=== PATIENT | female | born 1975 | race Caucasian/White ===

== ENCOUNTER 2017-04-08 22:53 | Emergency (ER) | payer SELFPAY ==
--- NOTE | 2017-04-08 23:42 | EDM.PDOC ---
ED HPI GENERAL MEDICAL PROBLEM - General Chief Complaint: Gastrointestinal Problem Stated Complaint: "THROWING UP AND MY HEART RACING" Time Seen by Provider: 04/08/17 23:30 Source of Information: Reports: Patient History Limitations: Reports: No Limitations - History of Present Illness INITIAL COMMENTS - FREE TEXT/NARRATIVE: States that last evening she vomited 5-6 times and "it was all blood" [place] warm and wea all over. Then slept as she was working evenings and has vomited again this evening from 7-10 about 4 times but no blood in it. Has noted that heart rate is up at work tonight and she feels weak. Has not ate anything today but has been drinking water and sprite. No diarrhea with it. Does have history of stomach ulcers which she takes meds for. Does feel weak but was able to complete shift. Onset: Gradual Location: Reports: Abdomen Associated Symptoms: Reports: Nausea/Vomiting, Weakness Abdomen Pain Score (Numeric/FACES): 6 - Related Data Allergies Allergy/AdvReac Type Severity Reaction Status Date / Time Penicillins Allergy Vomiting Verified 04/08/17 23:25 Tetanus Vaccines and Toxoid Allergy Cannot Verified 04/08/17 23:26 Remember Home Meds: Home Meds Metoclopramide [Reglan] 10 mg PO QIDACANDBED 04/08/17 [History] Pantoprazole Sodium [Protonix] 40 mg PO DAILY 04/08/17 [History] Ranitidine HCl [Zantac] 300 mg PO DAILY 04/08/17 [History] Sucralfate [Carafate] 1 gm PO 5XDAY 04/08/17 [History] Past Medical History Gastrointestinal History: Reports: GI Bleed - Past Surgical History GI Surgical History: Reports: Other (See Below) (stomach surgery 2013) Female Surgical History: Reports: Hysterectomy Social & Family History - Tobacco Core Measures Tobacco Use/Smoking Within Last 30 Days: No - Alcohol Use Alcohol Use in Last Twelve Months: No ED ROS GENERAL - Review of Systems Review Of Systems: See Below Constitutional: Reports: No Symptoms, Weakness. Denies: Fever, Chills Respiratory: Reports: No Symptoms Cardiovascular: Reports: Other (tachycardia.) GI/Abdominal: Reports: Abdominal Pain, Decreased Appetite, Vomiting. Denies: Constipation, Diarrhea : Reports: No Symptoms Musculoskeletal: Reports: No Symptoms Neurological: Reports: Headache ED EXAM, GI/ABD - Physical Exam Exam: See Below Exam Limited By: No Limitations General Appearance: Alert, WD/WN, Mild Distress Ears: Normal External Exam, Normal Canal, Normal TMs Nose: Normal Inspection Throat/Mouth: Normal Inspection, Normal Oropharynx, Normal Voice, No Airway Compromise Head: Atraumatic, Normocephalic Neck: Normal Inspection, Supple, Non-Tender, Full Range of Motion Respiratory/Chest: No Respiratory Distress, Lungs Clear, Normal Breath Sounds Cardiovascular: Normal Peripheral Pulses, No Edema, No Murmur, Tachycardia GI/Abdominal Exam: Normal Bowel Sounds, Soft, Non-Tender Back Exam: Normal Inspection, Full Range of Motion Extremities: Normal Inspection, Normal Range of Motion, Non-Tender Neurological: Alert, Oriented Skin Exam: Warm, Dry, Intact Course - Vital Signs Last Recorded V/S: Last Vital Signs Temp 98.8 F 04/08/17 23:16 Pulse 106 H 04/08/17 23:16 Resp 20 04/08/17 23:16 BP 123/87 04/08/17 23:16 Pulse Ox 100 04/08/17 23:16 - Orders/Labs/Meds Labs: Laboratory Tests 04/08/17 04/08/17 04/08/17 Range/Units 11:20 11:20 23:32 WBC 13.2 H (5.0-10.0) 10^3/uL RBC 4.00 (4.00-5.50) 10^6/uL Hgb 10.7 L (12.0-16.0) g/dL Hct 32.5 L (37.0-47.0) % MCV 81.3 L (82.0-94.0) fL MCH 26.8 L (27.0-32.0) pg MCHC 32.9 L (33.0-38.0) g/dL RDW Coeff of Natasha 17.4 H (11.0-15.0) % Plt Count 398 (150-400) 10^3/uL Neut % (Auto) 84.3 (35-85) % Lymph % (Auto) 11.2 (10-55) % [place] % (Auto) 4.2 (0-16) % Eos % (Auto) 0.1 (0-5) % Baso % (Auto) 0.2 (0-3) % Neut # (Auto) 11.14 H (1.80-7.00) 10^3/uL Lymph # (Auto) 1.48 (1.00-4.80) 10^3/uL [place] # (Auto) 0.55 (0.00-0.80) 10^3/uL Eos # (Auto) 0.01 (0.00-0.45) 10^3/uL Baso # (Auto) 0.02 10^3/uL Sodium 135 L (136-145) mEq/L Potassium 3.8 (3.5-5.0) mEq/L Chloride 99 (98-106) mEq/L Carbon Dioxide 27 (21-32) mmol/L BUN 37 H (7-18) mg/dL Creatinine 1.2 H (0.6-1.0) mg/dL Est Cr Clr Drug Dosing 53.81 mL/min Estimated GFR (MDRD) 50 L (>=60) mL/min Glucose 119 H (75-99) mg/dL Calcium 9.0 (8.4-10.1) mg/dL Total Bilirubin 0.3 (0.0-1.0) mg/dL AST 14 L (15-37) U/L ALT 26 (12-78) U/L Alkaline Phosphatase 55 (46-116) U/L Total Protein 7.3 (6.4-8.2) g/dL Albumin 3.7 (3.4-5.0) g/dL Urine Color Yellow (YELLOW) Urine Appearance Clear (CLEAR) Urine pH 6.0 (4.5-8.0) Ur Specific [place] 1.015 (1.003-1.020) Urine Protein Negative (NEGATIVE) mg/dL Urine Glucose (UA) Negative (NEGATIVE) mg/dL Urine Ketones 15 H (NEGATIVE) mg/dL Urine Occult Blood Negative (NEGATIVE) Urine Nitrite Negative (NEGATIVE) Urine Bilirubin Negative (NEGATIVE) Urine Urobilinogen 0.2 (0.2-1.0) EU/dL Ur Leukocyte Esterase Negative (NEGATIVE) Urine RBC Not seen (0-5) /HPF Urine WBC Not seen (0-5) /HPF Ur Squamous Epith Cells Moderate H (NOT SEEN) /HPF Urine Mucus Few H (NOT SEEN) /HPF Meds: Medications Discontinued Medications Generic Name Dose Route Start Last Admin Trade Name Freq PRN Reason Stop Dose Admin Lactated Ringer's 1,000 mls @ 999 mls/hr 04/08/17 23:51 04/09/17 00:01 Ringers, Lactated IV 04/09/17 00:51 999 mls/hr .BOLUS ONE Administration Ondansetron HCl 4 mg 04/08/17 23:51 04/09/17 00:20 Zofran IVPUSH 4 mg Q6H PRN Administration Nausea Pantoprazole Sodium 40 mg 04/08/17 23:55 04/09/17 00:15 Protonix Iv IVPUSH 04/08/17 23:56 40 mg ONETIME ONE Administration - Re-Assessments/Exams Free Text/Narrative Re-Assessment/Exam: 04/08/17 23:53 reviewed lab results with the pt. Will give 2 liters of IV fluids, Protonix and zofran. recheck when fluids are infused and follow up and plan for discharge at that time. 04/09/17 0325 Discussed with nursing that pt feels better except still has some headache but that has improved. Will discharge to home. No work this morning, push fluids. Departure - Departure Time of Disposition: 03:30 Disposition: Home, Self-Care 01 Clinical Impression: Vomiting - Discharge Information Instructions: Nausea and Vomiting, Adult, [id number] Referrals: PCP,Unobtain [Ordering Only Provider] - Forms: ED Department Discharge Additional Instructions: No work this morning tylenol for headaches as needed Recheck if nausea reoccurs or if any bleeding noted Push fluids as much as possible - Problem List & Annotations (1) Vomiting SNOMED Code(s): 249548737 Code(s): R11.10 - VOMITING, UNSPECIFIED Status: Acute Priority: High - Problem List Review Problem List Initiated/Reviewed/Updated: Yes
[2017-04-08] MEDS ORDERED: Lactated Ringers 1,000 ML IV ONE (23:51)
[2017-04-08] MEDS ORDERED: Ondansetron 4 MG/2 ML SDV IVPUSH PRN (23:51)
[2017-04-08] MEDS ORDERED: Pantoprazole 40 MG Vial IVPUSH ONE (23:55)
== END 2017-04-09 02:48 | disposition home or self-care (01) ==
LOC: EDBD → CC.ED 22:53
DX: R11.2 Nausea with vomiting, unspecified (principal); Z79.899 Other long term (current) drug therapy; Z88.0 Allergy status to penicillin; Z88.7 Allergy status to serum and vaccine
CPT/HCPCS: 36415; 80053; 81001; 85025; 96361; 96374; 96375; 99284; C9113; J2405; J7120

== ENCOUNTER 2017-04-14 02:30 | Emergency (ER) | payer SELFPAY ==
[2017-04-14] MEDS ORDERED: Aspirin 81 MG Tab.Chew PO ONE (03:11)
[2017-04-14 03:25] LABS: CHLORIDE,CL 105 mEq/L (98-106); SODIUM,NA 138 mEq/L (136-145)
[2017-04-14] MEDS ORDERED: Sodium Chloride 0.9% 1,000 ML ONE (03:48)
[2017-04-14] MEDS ORDERED: Sodium Chloride 0.9% 1,000 ML IV ONE (04:00)
[2017-04-14] MEDS ORDERED: Pantoprazole 40 MG Vial IVPUSH SCH (04:15)
--- NOTE | 2017-04-14 05:14 | EDM.PDOC ---
ED HPI GENERAL MEDICAL PROBLEM - General Chief Complaint: Syncope Stated Complaint: SOB Time Seen by Provider: 04/14/17 03:25 Source of Information: Reports: Patient History Limitations: Reports: No Limitations - History of Present Illness INITIAL COMMENTS - FREE TEXT/NARRATIVE: Lyndsay is a 41 yo female who presents to the ER with concerns of her heart racing. She states when she got up yesterday morning she became very lightheaded and felt as if she was going to faint. She states it continued all day and she stayed home resting on the couch. Admits every time she would get up her heart would start racing faster and felt as if she was getting weaker. States she would get some chest discomfort upon ambulation and shortness of breath. She was seen on in the ER for bloody emesis. She states she was given a couple liters of fluids and Zofran for the nausea. States she did well through out the weekend with no further emesis. 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 States she felt fine all day and had no difficulties. She admits to a history of stomach ulcers and was started on Carafate, Protonix and Zantac about 3 months ago from her primary physician in [place]. She states she hasn't been taking the medicines every day and still has the original prescriptions. She did not take her medicines today. She denies any abdominal discomfort presently. States she had one bowel movement today, which was black and hard. Admits to having dark bloody stools on occasion though. States in 2013, she underwent an EGD and was found to have an obstruction and underwent surgery at the distal end of her stomach. She isn't sure exactly what was done but she was told then that she had Ulcers. She states she needed a blood transfusion then and was told she was anemic but isn't sure from what. She denies any history of frequent NSAID use. States she had taken Aleve on only one occasion last week for a headache but none since. She denies any alcohol use. States she rarely drinks any caffeine either. Per review of her chart from her ER visit on the 09 of March her Hgb was 10.7 with a Hct of 32.5. Onset Date: 04/13/17 Duration: Constant Location: Reports: Chest Improves with: Reports: Rest Worsens with: Reports: Movement Associated Symptoms: Reports: Chest Pain (states she had some chest discomfort on arrival, but nothing since. ), Headaches, Loss of Appetite, Shortness of Breath, Weakness. Denies: Fever/Chills, Nausea/Vomiting, Syncope - Related Data Allergies Allergy/AdvReac Type Severity Reaction Status Date / Time Penicillins Allergy Vomiting Verified 04/14/17 02:48 Tetanus Vaccines and Toxoid Allergy Cannot Verified 04/14/17 02:48 Remember Home Meds: Home Meds Metoclopramide [Reglan] 10 mg PO QIDACANDBED 04/08/17 [History] Pantoprazole Sodium [Protonix] 40 mg PO DAILY 04/08/17 [History] Ranitidine HCl [Zantac] 300 mg PO DAILY 04/08/17 [History] Sucralfate [Carafate] 1 gm PO 5XDAY 04/08/17 [History] Past Medical History HEENT History: Reports: None Cardiovascular History: Reports: High Cholesterol (hypertriglyceridemia) Respiratory History: Reports: None Gastrointestinal History: Reports: Bowel Obstruction, GI Bleed, PUD Genitourinary History: Reports: Other (See Below) Other Genitourinary History: high grade cervical dysplasia Neurological History: Reports: None Psychiatric History: Reports: Anxiety (stress) Endocrine/Metabolic History: Reports: None Hematologic History: Reports: Anemia, Blood Transfusion(s) (2013) - Past Surgical History GI Surgical History: Reports: Other (See Below) (stomach surgery 2013) Female Surgical History: Reports: Hysterectomy (partial for high grade dysplasia (Grade 4) @ 28yrs old) Social & Family History - Family History Cardiac: Reports: Hypertension OBGYN: Reports: Other (See Below) (mother had uterine cancer) Hematologic: Reports: Anemia Oncologic: Reports: Uterine (mother) - Tobacco Use Smoking Status *Q: Never Smoker Second Hand Smoke Exposure: No - Alcohol Use Alcohol Use History: No Alcohol Use in Last Twelve Months: No - Recreational Drug Use Recreational Drug Use: No ED ROS GENERAL - Review of Systems Review Of Systems: See Below Constitutional: Reports: Weakness, Fatigue. Denies: Fever, Chills, Diaphoresis HEENT: Reports: No Symptoms Respiratory: Reports: No Symptoms. Denies: Cough, Hemoptysis Cardiovascular: Reports: Chest Pain (infrequently), Dyspnea on Exertion, Lightheadedness, Palpitations. Denies: Edema, Syncope GI/Abdominal: Reports: Black Stool, Bloody Stool, Constipation, Hematemesis ( subsided 04/08/2017). Denies: Abdominal Pain, Diarrhea, Vomiting : Reports: No Symptoms. Denies: Irregular Menses (hysterectomy) Neurological: Reports: Dizziness, Headache Psychiatric: Reports: Anxiety Hematologic/Lymphatic: Reports: Anemia ED EXAM, GENERAL - Physical Exam Exam: See Below Exam Limited By: No Limitations General Appearance: Alert, No Apparent Distress Ears: Normal External Exam, Hearing Grossly Normal Nose: Normal Inspection, No Blood Throat/Mouth: Normal Inspection, Normal Voice, No Airway Compromise Head: Atraumatic, Normocephalic Neck: Normal Inspection, Supple Respiratory/Chest: No Respiratory Distress, Lungs Clear, Normal Breath Sounds, No Accessory Muscle Use Cardiovascular: Normal Peripheral Pulses, No Edema, No Murmur, Tachycardia Peripheral Pulses: 2+: Posterior Tibial (L), Posterior Tibial (R), Dorsalis Pedis (L), Dorsalis Pedis (R) GI/Abdominal: Normal Bowel Sounds, Soft, Non-Tender, No Organomegaly, No Distention, No Mass Rectal (Female) Exam: Normal Rectal Tone, Heme + Stool. No: Bloody Stool (no gross blood in rectal vault), Decreased Rectal Tone, Hemorrhoids Extremities: Normal Inspection Neurological: Alert, Oriented, Normal Cognition, No Motor/Sensory Deficits Psychiatric: Normal Affect, Normal Mood Skin Exam: Warm, Dry, Pallor EKG INTERPRETATION EKG Date: 04/14/17 Time: 15:06 Rhythm: Other (Sinus Tachycardia) Comparison: NA - No Prior EKG Course - Vital Signs Last Recorded V/S: Last Vital Signs Temp 99.8 F 04/14/17 04:49 Pulse 104 H 04/14/17 04:49 Resp 18 04/14/17 04:49 BP 122/81 04/14/17 04:49 Pulse Ox - Orders/Labs/Meds Orders: Active Orders 24 hr Category Date Time Status EKG Documentation Completion [RC] STAT Care 04/14/17 02:59 Active Chest 1V Frontal [CR] Stat Exams 04/14/17 02:54 Taken RED BLOOD CELLS LP [BBK] Stat Lab 04/14/17 03:00 Results TYPE AND SCREEN [BBK] Stat Lab 04/14/17 03:00 Results Pantoprazole [ProTONIX IV] Med 04/14/17 04:15 Active 40 mg IVPUSH Q24H Sodium Chloride 0.9% [Normal Saline] 1,000 ml Med 04/14/17 04:00 Active IV .BOLUS Medication Orders Sodium Chloride (Normal Saline) 1,000 mls @ 999 mls/hr IV .BOLUS ONE Stop: 04/14/17 05:00 Pantoprazole Sodium (Protonix Iv) 40 mg IVPUSH Q24H YOLA Labs: Laboratory Tests 04/14/17 04/14/17 04/14/17 Range/Units 03:00 03:00 03:00 WBC 14.3 H (5.0-10.0) 10^3/uL RBC 2.27 L (4.00-5.50) 10^6/uL Hgb 6.2 L* (12.0-16.0) g/dL Hct 19.3 L* (37.0-47.0) % MCV 85.0 (82.0-94.0) fL MCH 27.3 (27.0-32.0) pg MCHC 32.1 L (33.0-38.0) g/dL RDW Coeff of Natasha 18.5 H (11.0-15.0) % Plt Count 409 H (150-400) 10^3/uL Neut % (Auto) 73.8 (35-85) % Lymph % (Auto) 18.2 (10-55) % [place] % (Auto) 6.7 (0-16) % Eos % (Auto) 1.1 (0-5) % Baso % (Auto) 0.2 (0-3) % Neut # (Auto) 10.53 H (1.80-7.00) 10^3/uL Lymph # (Auto) 2.60 (1.00-4.80) 10^3/uL [place] # (Auto) 0.95 H (0.00-0.80) 10^3/uL Eos # (Auto) 0.15 (0.00-0.45) 10^3/uL Baso # (Auto) 0.03 10^3/uL PT 10.5 (9.7-12.3) SEC INR 0.97 (0.92-1.18) APTT 20.8 (20.0-45.0) SEC Sodium 138 (136-145) mEq/L Potassium 3.7 (3.5-5.0) mEq/L Chloride 105 (98-106) mEq/L Carbon Dioxide 23 (21-32) mmol/L BUN 24 H (7-18) mg/dL Creatinine 1.1 H (0.6-1.0) mg/dL Est Cr Clr Drug Dosing TNP Estimated GFR (MDRD) 55 L (>=60) mL/min Glucose 155 H D (75-99) mg/dL Calcium 8.5 (8.4-10.1) mg/dL Lactate Dehydrogenase 143 (100-190) U/L Creatine Kinase 36 (21-215) U/L Troponin I < 0.017 (0.00-0.06) ng/mL Blood Type Gel Antibody Screen Crossmatch 04/14/17 Range/Units 03:00 WBC (5.0-10.0) 10^3/uL RBC (4.00-5.50) 10^6/uL Hgb (12.0-16.0) g/dL Hct (37.0-47.0) % MCV (82.0-94.0) fL MCH (27.0-32.0) pg MCHC (33.0-38.0) g/dL RDW Coeff of Natasha (11.0-15.0) % Plt Count (150-400) 10^3/uL Neut % (Auto) (35-85) % Lymph % (Auto) (10-55) % [place] % (Auto) (0-16) % Eos % (Auto) (0-5) % Baso % (Auto) (0-3) % Neut # (Auto) (1.80-7.00) 10^3/uL Lymph # (Auto) (1.00-4.80) 10^3/uL [place] # (Auto) (0.00-0.80) 10^3/uL Eos # (Auto) (0.00-0.45) 10^3/uL Baso # (Auto) 10^3/uL PT (9.7-12.3) SEC INR (0.92-1.18) APTT (20.0-45.0) SEC Sodium (136-145) mEq/L Potassium (3.5-5.0) mEq/L Chloride (98-106) mEq/L Carbon Dioxide (21-32) mmol/L BUN (7-18) mg/dL Creatinine (0.6-1.0) mg/dL Est Cr Clr Drug Dosing Estimated GFR (MDRD) (>=60) mL/min Glucose (75-99) mg/dL Calcium (8.4-10.1) mg/dL Lactate Dehydrogenase (100-190) U/L Creatine Kinase (21-215) U/L Troponin I (0.00-0.06) ng/mL Blood Type O POSITIVE Gel Antibody Screen Negative Crossmatch See Detail Meds: Medications Generic Name Dose Route Start Last Admin Trade Name Freq PRN Reason Stop Dose Admin Sodium Chloride 1,000 mls @ 999 mls/hr 04/14/17 04:00 Normal Saline IV 04/14/17 05:00 .BOLUS ONE Pantoprazole Sodium 40 mg 04/14/17 04:15 Protonix Iv IVPUSH Q24H YOLA Discontinued Medications Generic Name Dose Route Start Last Admin Trade Name Freq PRN Reason Stop Dose Admin Sodium Chloride Confirm 04/14/17 03:48 Normal Saline Administered 04/14/17 03:49 Dose 1,000 mls @ as directed .ROUTE .STK-MED ONE Departure - Departure Time of Disposition: 05:40 Disposition: DC/[facility]fer to [facility] 02 Reason for Transfer *Q: Other Clinical Impression: GI bleed Qualifiers: GI bleed type/associated pathology: unspecified gastrointestinal hemorrhage type Qualified Code(s): K92.2 - Gastrointestinal hemorrhage, unspecified - Problem List & Annotations (1) GI bleed SNOMED Code(s): 34565861 Code(s): K92.2 - GASTROINTESTINAL HEMORRHAGE, UNSPECIFIED Status: Acute Qualifiers: GI bleed type/associated pathology: unspecified gastrointestinal hemorrhage type Qualified Code(s): K92.2 - Gastrointestinal hemorrhage, unspecified - Problem List Review Problem List Initiated/Reviewed/Updated: Yes - My Orders Last 24 Hours: My Active Orders 04/14/17 02:54 Chest 1V Frontal [CR] Stat 04/14/17 02:59 EKG Documentation Completion [RC] STAT 04/14/17 03:00 RED BLOOD CELLS LP [BBK] Stat TYPE AND SCREEN [BBK] Stat 04/14/17 04:00 Sodium Chloride 0.9% [Normal Saline] 1,000 ml IV .BOLUS 04/14/17 04:15 Pantoprazole [ProTONIX IV] 40 mg IVPUSH Q24H - Assessment/Plan Last 24 Hours: My Active Orders 04/14/17 02:54 Chest 1V Frontal [CR] Stat 04/14/17 02:59 EKG Documentation Completion [RC] STAT 04/14/17 03:00 RED BLOOD CELLS LP [BBK] Stat TYPE AND SCREEN [BBK] Stat 04/14/17 04:00 Sodium Chloride 0.9% [Normal Saline] 1,000 ml IV .BOLUS 04/14/17 04:15 Pantoprazole [ProTONIX IV] 40 mg IVPUSH Q24H Plan: Hgb was 6.2 this morning and Lyndsay was typed and crossed with blood type of O+. Consulted with Dr. Hunt, Hospitalist, at [facility] for further evaluation and treatment of GI bleed. Dr. Hunt kindly accepted transfer. Discussed findings with Lyndsay and felt a higher level of care was appropriate at this time. Advised she may need services that we can not offer here. Discussed risks and benefits of transfer. The risks of transfer discussed were MVA, worsening of condition, etc... Risks of non-transfer: lack of specialized treatment/interventions not provided at this local facility. Benefits of transfer included: specialty care and possible interventions not provided at this facility. Benefits of non-transfer included: staying in familiar environment. She verbalized understanding of the risks. We discussed modes of transfer to include: air and ground services. She agreed with ALS transfer d/t receiving pRBCs en route and monitoring. ALS transfer initiated. [facility] had no available ALS crews. [facility] service contacted and en route for patient transfer.
== END 2017-04-14 06:15 ==
LOC: EDBD → CC.ED 02:30
DX: K92.2 Gastrointestinal hemorrhage, unspecified (principal); E78.00 Pure hypercholesterolemia, unspecified; Z88.0 Allergy status to penicillin; Z79.899 Other long term (current) drug therapy; Z88.7 Allergy status to serum and vaccine
CPT/HCPCS: 36415; 36430; 71010; 80048; 82550; 83615; 84484; 85025; 85610; 85730; 86850; 86900; 86901; 86920; 86922; 93005; 96374; 99285; A9270; C9113; J7030; P9016